=== PATIENT | male | born 1975 | race Caucasian/White ===

== ENCOUNTER 2016-12-15 21:12 | Emergency (ER) ==
[2016-12-15 21:18] VITALS: BP 135/97; TEMP 98.6; BMI 23.7
--- NOTE | 2016-12-15 22:13 | CT ---
EXAM: CT sinuses/facial bones without contrast HISTORY: Trauma COMPARISON: None TECHNIQUE: Helical axial CT of the facial bones and sinuses were obtained without contrast with cor onal and sagittal reconstructions. FINDINGS: There is an inferior blowout fracture involving the right orbit. There is no evidence fo r any herniation of orbital contents into the sinus and there is no entrapment of the inferior rectu s. There is very extensive membrane thickening noted in both maxillary sinuses left greater than ri ght but no air-fluid levels. There is no hemorrhage in the sinuses. There is some diastases of the spheno-zygomatic suture of the left orbit. The ostiomeatal units are occluded bilaterally. The digna bes are intact. There is a elizabeth bullosa of the middle turbinate on the left. There is a fair bing unt of membrane thickening in the ethmoid air cells. The sphenoid sinus is clear and there is some minimal membrane thickening in the frontal sinus. There are no other osseous abnormalities identifi ed. The mandible is intact. There is no medial blowout fracture involving either orbit. There is no dental fracture identified. The pterygoid plates and the temporomandibular joints are normal. T he visualized portions of the temporal bones are unremarkable. There is no nasal fracture. There i s some soft tissue swelling seen over the left cheek. The zygomatic arches are intact. IMPRESSION: 1. Left orbital inferior blowout fracture with no evidence for orbital fat herniation or inferior r ectus entrapment. There is no hemorrhage within the sinus and the osseous fragment is not identifie d consistent with a more longstanding injury, however the presence of soft tissue swelling over the left maxilla would suggest that this is an acute injury. 2. Membrane thickening in the paranasal sinuses as described with a left-sided elizabeth bullosa. 3. Diastases of the left spheno-zygomatic suture.
--- NOTE | 2016-12-15 22:14 | ED.PDOC ---
General ED Provider: Dr. CARLOS CONLEY-ER Chief Complaint: Facial Injury Stated Complaint: hit by softball a few hours ago on left cheek--denies loc or neck pain Time Seen by Physician: 21:15 Mode of Arrival: Walk-In Information Source: Patient Exam Limitations: No limitations Nursing and Triage Documentation Reviewed and Agree: Yes Trauma/Injury Complaint Exam - Facial Injury Complaint/Exam Location of Pain: Reports: Left, Cheek Mechanism of Injury: Reports: Trauma Onset/Duration: 4 hrs Symptoms Are: Still present Onset of Pain: Reports: Immediate Initial Severity: Mild Current Severity: Mild Location: Reports: Discrete (left cheek) Character: Reports: Dull, Aching Alleviating: Reports: None Aggravating: Reports: Movement Associated Signs and Symptoms: Reports: Swelling, Bruising. Denies: Redness, Numbness, Tingling, Fever, Polymyalgia, Weight loss, Visual defects, Tinnitus, Headache, Loss of consciousness Related Surgical History: Reports: None Facial Findings: Present: Swelling, Ecchymosis, Abrasion, Laceration Differential Diagnoses: Contusion, Fracture Review of Systems - Review Of Systems Constitutional: Reports: No symptoms Eyes: Reports: No symptoms Ears, Nose, Mouth, Throat: Reports: No symptoms Respiratory: Reports: No symptoms Cardiac: Reports: No symptoms GI: Reports: No symptoms : Reports: No symptoms Musculoskeletal: Reports: No symptoms, Muscle stiffness Skin: Reports: No symptoms Neurological: Reports: No symptoms Endocrine: Reports: No symptoms Hematologic/Lymphatic: Reports: No symptoms All Other Systems: Reviewed and Negative Past Medical History - Past Medical History Previously Healthy: Yes Endocrine: Reports: None Cardiovascular: Reports: Hypertension Respiratory: Reports: None Hematological: Reports: None Gastrointestinal: Reports: None Genitourinary: Reports: None Neuro/Psych: Reports: None Musculoskeletal: Reports: None Cancer: Reports: None Other Pertinent Past Medical History: THUMB, NOSE, LEFT LEG, WRIST, - Surgical History General Surgical History: Reports: Orthopedic (THUMB, NOSE, LEFT LEG, WRIST; FX LEG, PINS IN THUMB, TORN TENDON) - Family History Family History: Reports: Unknown - Social History Smoking Status: Current some day smoker Hx Substance Use: No Alcohol Screening: Occasionally Lives: With family - Immunizations Tetanus Shot up to Date: Yes Physical Exam - Physical Exam Appearance: Well-appearing, No pain distress, Well-nourished Pain Distress: Mild Eyes: JOSE, EOMI, Conjunctiva clear ENT: Ears normal, Nose normal, Oropharynx normal Neck: Supple Respiratory: Airway patent, Breath sounds clear, Breath sounds equal, Respirations nonlabored Cardiovascular: RRR, Pulses normal, No rub, No murmur GI/: Soft, Nontender, No masses, Bowel sounds normal, No Organomegaly Musculoskeletal: Normal strength, ROM intact, No edema, No calf tenderness Skin: Warm, Dry, Normal color Neurological: Sensation intact, Motor intact, Reflexes intact, Cranial nerves intact, Alert, Oriented Psychiatric: Affect appropriate, Mood appropriate Interpretation - Radiology Interpretation Radiology Interpretation By: Radiologist Radiology Results: Positive Exam Interpreted: CT Scan Critical Care Note - Critical Care Note Total Time (mins): 0 Course - Course Orders, Labs, Meds: Orders Category Date Time Status Ceftriaxone Sodium [Rocephin] MEDS 12/15/16 22:17 Discontinued 1 gm IM ONCE STA Ketorolac Tromethamine [Toradol] MEDS 12/15/16 22:17 Discontinued 60 mg IM ONCE STA Lidocaine HCl/Pf [Lidocaine 1 % Amp 5 ml (Sutures)] MEDS 12/15/16 22:17 Discontinued 2.1 ml IM ONCE STA CT CERVICAL SPINE W/O CONTRAST Stat RADS 12/15/16 22:[address] HEAD W/O CONTRAST Stat RADS 12/15/16 22:[address] MAXILLOFACIAL W/O CONTRAST Stat RADS 12/15/16 21:22 Completed Medications Discontinued Medications Generic Name Dose Route Start Last Admin Trade Name Freq PRN Reason Stop Dose Admin Ceftriaxone Sodium 1 gm 12/15/16 22:17 12/15/16 22:31 Rocephin IM 12/15/16 22:18 1 gm ONCE STA Administration Ketorolac Tromethamine 60 mg 12/15/16 22:17 12/15/16 22:31 Toradol IM 12/15/16 22:18 60 mg ONCE STA Administration Lidocaine HCl 2.1 ml 12/15/16 22:17 12/15/16 22:31 Lidocaine 1 % Amp 5 Ml (Sutures) IM 12/15/16 22:18 2.1 ml ONCE STA Administration Vital Signs: Temp Pulse Resp BP Pulse Ox 12/15/16 21:12 98.6 F 114 H 20 135/97 H 93 L Departure - Departure Time of Disposition: 23:01 Disposition: HOME SELF-CARE Discharge Problem: Facial bones, closed fracture Qualifiers: Encounter type: initial encounter Facial bone/location: unspecified facial bone Qualifier Code: (S02.92XA) Unspecified fracture of facial bones, initial encounter for closed fracture Instructions: Facial Fracture (ED) Condition: Good Pt referred to PMD for follow-up: Yes Additional Instructions: toradol 10mg qid prn pain #16--keflex 500mg bid x 7days--lebron will call u tomorrow for ent referral Allergies/Adverse Reactions: Allergies No Known Allergies Allergy (Verified 12/15/16 21:16) Home Medications: Ambulatory Orders Hydrocodone/Acetaminophen [Hurley 10-325 Tablet] 1 each PO Q6HR PRN #7 tablet 12/07 Disposition Discussed With: Patient, Family
[2016-12-15] MEDS ORDERED: TORADOL IM STA (22:17)
[2016-12-15] MEDS ORDERED: ROCEPHIN IM STA (22:17)
[2016-12-15] MEDS ORDERED: LIDOCAINE 1 % AMP 5 ML (SUTURES) IM STA (22:17)
--- NOTE | 2016-12-15 22:59 | CT ---
CT cervical spine without contrast HISTORY: Trauma and pain TECHNIQUE: CT of the cervical spine with multiplanar reformations. FINDINGS: Reformatted images demonstrate normal alignment with preservation of vertebral body heigh t. Low grade multilevel endplate spondylosis. No fracture seen on the axial or reformatted images. No acute surrounding soft tissue abnormalitites. Lung apices are clear. IMPRESSION: No acute findings in the cervical spine.
--- NOTE | 2016-12-15 22:59 | CT ---
EXAM: CT head without contrast 12/15/2016. Sagittal and coronal reformatted images obtained HISTORY: Headache. Trauma COMPARISON: None. FINDINGS: There is no evidence of intracranial hemorrhage. The midline is maintained. There is no hydrocephalus. No cerebellar tonsillar ectopia. Multiple partially visualized facial bone fractu res.. The mastoid air cells are normally pneumatized. IMPRESSION: 1. No intracranial abnormality. 2. Partially visualized facial bone fractures. Please refer to report of CT maxillofacial for furt her evaluation.
== END 2016-12-15 23:10 | disposition home or self-care (01) ==
LOC: ED 21:12
DX: S02.32XA Fracture of orbital floor, left side, initial encounter for closed fracture (principal); W21.07XA Struck by softball, initial encounter; F17.210 Nicotine dependence, cigarettes, uncomplicated
CPT/HCPCS: 96372; 99283

== ENCOUNTER 2017-01-24 23:51 | Emergency (ER) ==
[2017-01-24 23:52] VITALS: BMI 24.4
[2017-01-25 00:05] VITALS: BP 145/99; TEMP 96.3
--- NOTE | 2017-01-25 00:31 | ED.PDOC ---
General ED Provider: Dr. CARLOS CONLEY-ER Chief Complaint: Rash Stated Complaint: my arms are itching and swollen Time Seen by Physician: 23:55 Mode of Arrival: Walk-In Information Source: Patient Exam Limitations: No limitations Nursing and Triage Documentation Reviewed and Agree: Yes Skin Complaint Exam - Skin Rash/Itching Complaint/Exam Onset/Duration: several hours Symptoms Are: Still present Initial Severity: Mild Current Severity: Moderate Location: both arms Potential Exposures: Reports: Plants Aggravating: Reports: None Alleviating: Reports: None Associated Signs and Symptoms: Denies: Difficulty breathing, Fever, Chills Skin Findings: Present: Dry scaly skin Differential Diagnoses: Contact Dermatitis Review of Systems - Review Of Systems Constitutional: Reports: No symptoms Eyes: Reports: No symptoms Ears, Nose, Mouth, Throat: Reports: No symptoms Respiratory: Reports: No symptoms Cardiac: Reports: No symptoms GI: Reports: No symptoms : Reports: No symptoms Musculoskeletal: Reports: No symptoms Skin: Reports: No symptoms Neurological: Reports: No symptoms Endocrine: Reports: No symptoms Hematologic/Lymphatic: Reports: No symptoms All Other Systems: Reviewed and Negative Past Medical History - Past Medical History Previously Healthy: Yes Endocrine: Reports: None Cardiovascular: Reports: Hypertension Respiratory: Reports: None Hematological: Reports: None Gastrointestinal: Reports: None Genitourinary: Reports: None Neuro/Psych: Reports: None Musculoskeletal: Reports: None Cancer: Reports: None Other Pertinent Past Medical History: THUMB, NOSE, LEFT LEG, WRIST, - Surgical History General Surgical History: Reports: Orthopedic (THUMB, NOSE, LEFT LEG, WRIST; FX LEG, PINS IN THUMB, TORN TENDON) - Family History Family History: Reports: Unknown - Social History Smoking Status: Current every day smoker, Heavy tobacco smoker Hx Substance Use: No Alcohol Screening: Occasionally Lives: With family Physical Exam - Physical Exam Appearance: Well-appearing, No pain distress, Well-nourished Eyes: JOSE, EOMI, Conjunctiva clear ENT: Ears normal, Nose normal, Oropharynx normal Neck: Supple Respiratory: Airway patent, Breath sounds clear, Breath sounds equal, Respirations nonlabored Cardiovascular: RRR, Pulses normal, No rub, No murmur GI/: Soft, Nontender, No masses, Bowel sounds normal, No Organomegaly Musculoskeletal: Normal strength Skin: Warm Neurological: Sensation intact Psychiatric: Affect appropriate, Mood appropriate Critical Care Note - Critical Care Note Total Time (mins): 0 Course - Course Vital Signs: Temp Pulse Resp BP Pulse Ox 01/24/17 23:52 96.3 F L 93 H 20 145/99 H 99 Departure - Departure Time of Disposition: 00:30 Disposition: HOME SELF-CARE Discharge Problem: Contact dermatitis Qualifiers: Contact dermatitis type: allergic Contact dermatitis trigger: non-food plants Qualified Code(s): L23.7 - Allergic contact dermatitis due to plants, except food Instructions: Contact Dermatitis (ED), Poison Chela (ED) Condition: Good Pt referred to PMD for follow-up: No Additional Instructions: start prednisone in am 40mg x 2 dasy then 20mg x 2 days then 10mg x 2 days-- lidex ointment apply to rash bid Allergies/Adverse Reactions: Allergies No Known Allergies Allergy (Verified 01/25/17 00:05) Home Medications: Ambulatory Orders Hydrocodone/Acetaminophen [Brielle 7.5-325 Tablet] 1 each PO QID PRN 01/25/17 Disposition Discussed With: Patient, Family
[2017-01-25] MEDS ORDERED: DECADRON 4 MG/ML SDV IM STA (00:33)
[2017-01-25] MEDS ORDERED: BENADRYL IM STA (00:33)
== END 2017-01-25 01:02 | disposition home or self-care (01) ==
LOC: ED 23:51
DX: L23.7 Allergic contact dermatitis due to plants, except food (principal); F17.210 Nicotine dependence, cigarettes, uncomplicated
CPT/HCPCS: 96372; 99282

== ENCOUNTER 2017-08-26 01:18 | Emergency (ER) ==
[2017-08-26 01:18] VITALS: BMI 24.4
[2017-08-26 01:29] VITALS: BP 179/110; TEMP 97.8
--- NOTE | 2017-08-26 01:31 | ED.PDOC ---
General ED Provider: Dr. CARLOS CONLEY-ER Chief Complaint: Extremity Pain/Injury Stated Complaint: my leg hurts Time Seen by Physician: 01:28 Mode of Arrival: Walk-In Information Source: Patient Exam Limitations: No limitations Nursing and Triage Documentation Reviewed and Agree: Yes Reviewed sepsis parameters & appropriate labs ordered?: Yes System Inflammatory Response Syndrome: Not Applicable Sepsis Protocol: For patient's 13 years and over: Temp is 96.8 and below OR 101 and greater Pulse >90 BPM Resp >20/minute Acutely Altered Mental Status Are patient's symptoms suggestive of a new infection, such as: -Pneumonia -Skin, Soft Tissue -Endocarditis -UTI -Bone, Joint Infection -Implantable Device -Acute Abdominal Infection -Wound Infection -Meningitis -Blood Stream Catheter Infection -Unknown Musculoskeletal Complaint Exam - Lower Extremity Complaint/Exam Location of Pain: Reports: Left Mechanism of Injury: Reports: Other Symptoms Are: Still present Onset of Pain: Reports: Immediate Initial Severity: Mild Current Severity: Mild Location: Reports: Discrete Character: Reports: Dull, Aching Aggravating: Reports: Movement, Weight bearing Able to Bear Weight: No Associated Signs and Symptoms: Reports: Swelling, Bruising DVT Risk Factors: Reports: None Septic Arthritis Risk Factors: Reports: None Lower Extremity Findings: Present: Swelling, Ecchymosis NV Bundle Intact Distal to Injury: Yes Compartment Syndrome Risk Factors: Present: Pain Rocío's Sign Present: No Differential Diagnoses: Contusion, DVT, Strain, Sprain Review of Systems - Review Of Systems Constitutional: Reports: No symptoms Eyes: Reports: No symptoms Ears, Nose, Mouth, Throat: Reports: No symptoms Respiratory: Reports: No symptoms Cardiac: Reports: No symptoms GI: Reports: No symptoms : Reports: No symptoms Musculoskeletal: Reports: Muscle pain Skin: Reports: No symptoms Neurological: Reports: No symptoms Endocrine: Reports: No symptoms Hematologic/Lymphatic: Reports: No symptoms All Other Systems: Reviewed and Negative Past Medical History - Past Medical History Previously Healthy: Yes Endocrine: Reports: None Cardiovascular: Reports: Hypertension Respiratory: Reports: None Hematological: Reports: None Gastrointestinal: Reports: None Genitourinary: Reports: None Neuro/Psych: Reports: None Musculoskeletal: Reports: None Cancer: Reports: None Other Pertinent Past Medical History: THUMB, NOSE, LEFT LEG, WRIST, - Surgical History General Surgical History: Reports: Orthopedic (THUMB, NOSE, LEFT LEG, WRIST; FX LEG, PINS IN THUMB, TORN TENDON) - Family History Family History: Reports: Unknown - Social History Smoking Status: Current every day smoker, Heavy tobacco smoker Hx Substance Use: No Alcohol Screening: Occasionally - Immunizations Tetanus Shot up to Date: Yes Physical Exam - Physical Exam Appearance: Well-appearing, No pain distress, Well-nourished Pain Distress: Mild Eyes: JOSE, EOMI, Conjunctiva clear ENT: Ears normal, Nose normal, Oropharynx normal Neck: Supple Respiratory: Airway patent, Breath sounds clear, Breath sounds equal, Respirations nonlabored Cardiovascular: RRR, Pulses normal, No rub, No murmur GI/: Soft, Nontender, No masses, Bowel sounds normal, No Organomegaly Musculoskeletal: Limited ROM, Edema, Calf tenderness Skin: Warm, Dry, Normal color Neurological: Sensation intact, Motor intact, Reflexes intact, Cranial nerves intact, Alert, Oriented Psychiatric: Affect appropriate, Mood appropriate Critical Care Note - Critical Care Note Total Time (mins): 0 Course - Course Orders, Labs, Meds: i feel mr wheatley needs venous scan and my plan was to put him in an ambulance and transfer him to [facility] for venous scan but he declines--he understands risks of not transferring but still wants to leave [facility] Vital Signs: Temp Pulse Resp BP Pulse Ox 08/26/17 01:18 97.8 F 93 H 16 179/110 H 96 Departure - Departure Time of Disposition: 01:31 Disposition: AMA Discharge Problem: Injury of lower extremity Instructions: Leg Edema (ED) Condition: Good Pt referred to PMD for follow-up: Yes IPMP verified?: No Allergies/Adverse Reactions: Allergies No Known Allergies Allergy (Verified 08/26/17 01:21) Home Medications: Ambulatory Orders 1 [No Reported Medications] 08/26/17 Disposition Discussed With: Patient, Family
== END 2017-08-26 01:40 | disposition left against medical advice (07) ==
LOC: ED 01:18
DX: S89.92XA Unspecified injury of left lower leg, initial encounter (principal); F17.210 Nicotine dependence, cigarettes, uncomplicated
CPT/HCPCS: 99281

== ENCOUNTER 2017-09-04 11:00 | Outpatient (CLI) ==
--- NOTE | 2017-09-04 14:16 | US ---
EXAM: Left lower extremity venous doppler. HISTORY: Left leg pain and swelling. Left lower extremity deep vein thrombosis. COMPARISON: None available. TECHNIQUE: Multiple grayscale and color doppler images were obtained. FINDINGS: There is normal flow, compressibility and augmentation of flow within the left common femo ral, greater saphenous, profunda, femoral, popliteal, posterior tibial, anterior tibial and peroneal veins. IMPRESSION: No evidence for left lower extremity deep vein thrombosis at the levels examined.
== END 2017-09-04 11:01 | disposition home or self-care (01) ==
LOC: RAD 11:00
PROVIDERS: ATTEND Emergency Medicine
DX: I82.492 Acute embolism and thrombosis of other specified deep vein of left lower extremity (principal)